=== PATIENT | male | born 1950 | race Caucasian/White ===

== ENCOUNTER 2016-08-30 14:00 | Inpatient (IN) | payer MEDICARE ==
--- NOTE | ~2016-08-30 | EKG ---
PATIENT: MARGO RICKETTS UNIT #: [id number] Ventricular Rate: 87 BPM Atrial Rate: 57 BPM QRS Duration: 96 ms Q-T Interval: 374 ms QTC Calculation(Bezet): 450 ms Calculated R [place]: 72 degrees Calculated T [place]: 30 degrees Diagnosis Line: Atrial fibrillation Diagnosis Line: Low voltage QRS Diagnosis Line: Abnormal ECG Diagnosis Line: When compared with ECG of 30-AUG-2016 13:22, Diagnosis Line: (unconfirmed) Diagnosis Line: No significant change was found Diagnosis Line: Confirmed by CHIQUITA ARAGON MD ([id number]) on Diagnosis Line: 09/01/2016 8:03:13 PM INTERPRETING MD: BRENDEN
--- NOTE | ~2016-08-30 | CO ---
Unit #: [id number] #: [id number] Patient: MARGO RICKETTS [id number] [address] [place], [place] [address] [id number] I MR#: [id number] NAME: MARGO RICKETTS. ROOM: 578 Age: 65 Sex: M Admission Date: 08/30/2016 : 1950 Attending Physician: Ephraim Mcduffie M.D. Primary Care Physician: Pradeep Fitzgerald M.D. Consultation Date: 08/31/2016 CONSULTATION REPORT REASON FOR CONSULTATION Atrial fibrillation with rapid ventricular response. HISTORY OF PRESENT ILLNESS This is a 65-year-old white male, who sees Dr. Bowen in the office for chronic diastolic and systolic congestive heart failure and paroxysmal atrial fibrillation, on anticoagulation with Coumadin; hypertension; obstructive sleep apnea; morbid obesity, who has an ejection fraction of 45% to 50% on last echo in 2013. He presented to the emergency room with a 2-day history of increased cough, fever, palpitations, chills, body aches, and weakness. He has been exposed to the flu to his grand children and other family members. He said he just with his weakness and fever and also feeling palpitations, he came to the emergency room for further evaluation. He denies any chest pain; pain in his neck, bilateral jaws, shoulders, arms, or elbow. He denies any dizziness. No vomiting, diarrhea, abdominal pain, but has some nausea. In the emergency room, the patient's blood pressure was 134/80, heart rate was 140, respirations 16, temperature 98.8, O2 saturations 97% on room air. Later, his temperature went to 101.0. His labs; BUN 15, creatinine 1.2, potassium 3.9, magnesium level 1.7, sodium was 131 on admission and this morning is 135. The patient's lactic acid level was 2.0 and this morning is 1.4. WBCs are 6.2. His BNP is 100. Troponins less than 0.03. EKG shows atrial fibrillation with rapid ventricular response, ventricular rate 119 beats per minute. Chest x-ray did not show anything acute. He was positive for influenza A. the patient was started on Tamiflu and also given a dose of 5 mg of IV Lopressor and bolus of normal saline. His heart rate is now in the 90s. He still remains in atrial fibrillation. According to the patient, he saw Dr. Bowen about a month ago and he believes he was in normal sinus rhythm. Cardiology consult to assist with evaluation management. PAST MEDICAL HISTORY 1. In 2010, he had a Lexiscan Cardiolite stress test. Nuclear portion showed inferior wall ischemia. Ejection fraction 48%. The patient refused catheterization. The patient does report that he had a heart catheterization years ago, and told that was normal. 2. In 2013, 2D echo, LVEF of 45% to 50%, severe left ventricular hypertrophy. Diastolic dysfunction. Normal valve. 3. History of paroxysmal atrial fibrillation, has been on anticoagulation with Coumadin. 4. History of systolic and diastolic congestive heart failure. 5. Hypertension. Unit #: [id number] #: [id number] Patient: MARGO RICKETTS 6. Hyperlipidemia. 7. Diabetes mellitus type 2. 8. Obstructive sleep apnea, uses CPAP and follows Dr. Acosta. 9. Morbid obesity, 321 pounds, BMI of 41. 10. Reformed smoker. PAST SURGICAL HISTORY 1. Removal of vocal cord polyp. 2. Back surgery. 3. Cataract extraction. 4. Cyst removed. HOME MEDICATIONS Klor-Con 20 mEq p.o. daily; Coumadin 10 mg on Friday, Friday, Friday, Friday, and Friday and 12.5 mg on Friday and ; levothyroxine 25 mcg p.o. daily; Pacerone 200 mg p.o. daily; digoxin 125 mcg p.o. daily; glyburide 2 mg p.o. b.i.d.; Januvia 100 mg p.o. daily; Glucophage 500 mg p.o. q.i.d.; Lipitor 40 mg p.o. daily, chewable aspirin 81 mg. ALLERGIES No known drug allergies. SOCIAL HISTORY The patient lives with his spouse. He is very sedentary due to his medical issues. He quit smoking about 10 years ago. No alcohol or illicit drug abuse. FAMILY HISTORY No known coronary artery disease. His sister has hypertension. REVIEW OF SYSTEMS See details in HPI. PHYSICAL EXAMINATION GENERAL: Mr. Randolph is a 65-year-old, morbidly obese male, in no acute respiratory distress. He is awake, alert, and oriented. VITAL SIGNS: Blood pressure is 134/70 and this morning is 101/64; heart rate 92; respirations 20; temperature is 100; O2 sats 94% on room air. NECK: Trachea midline. No thyromegaly or lymphadenopathy. Normal carotid upstrokes. No jugular venous distention. HEART: S1, S2. Irregular rate and rhythm. No clicks, murmurs, or rubs. LUNGS: Diminished. A few faint rhonchi, initially cough and socially upper airway to faint wheeze. ABDOMEN: Obese, nontender. Positive bowel sounds present. EXTREMITIES: Pedal pulses are palpable. No pedal edema. DIAGNOSTIC STUDIES LABORATORY RESULTS: Glucose is 155, BUN 15, creatinine 1.2, eGFR is above 60. Sodium 135, potassium 3.9, chloride 102, CO2 of 23, calcium is 9.0, magnesium is 1.8, total protein 7.2, albumin 3.9, bilirubin total 1.2. AST is 109, ALT is 55, alkaline phosphatase is 36. BNP is 100. Digoxin level is 0.4. WBCs 6.2, hemoglobin 14.8, hematocrit 44.1, platelets are 172. Initial cardiac enzymes; CK-MB is 1.1, troponin less than 0.05. CK-MB is 1.1 with troponin less than 0.05 and later troponin less than 0.03. Protime is 20.5 with an INR of 1.9. WBCs 6.2, hemoglobin 14.8 and hematocrit 44.1, platelets 172. Influenza A is positive. Urinalysis 500 glucose, 0.2 urobilinogen, and 0.2 rbc's and 0.2 wbc's. Blood cultures are pending. Lactic acid was 2.0, this morning 1.4. Unit #: [id number] #: [id number] Patient: MARGO RICKETTS IMAGING STUDIES: Chest x-ray shows pulmonary venous distention without definite edema, pneumonia, or pleural effusion. CARDIOVASCULAR STUDIES: EKG shows atrial fibrillation with ventricular rate 119 beats per minute, nonspecific ST-T wave abnormalities. Otherwise, unremarkable. IMPRESSION 1. Sepsis, influenza A. 2. Atrial fibrillation with rapid ventricular response. 3. History of paroxysmal atrial fibrillation. 4. Hyponatremia, which is improved. 5. History of systolic and diastolic congestive heart failure. 6. Hypertension. 7. Diabetes mellitus type 2. 8. Hyperlipidemia. 9. Obstructive sleep apnea, uses CPAP. 10. Morbid obesity. BMI is 41. PLAN 1. Cardiology consult to assist with evaluation and management of atrial fibrillation. According to the patient, he saw Dr. Bowen about a month ago, he thought he was in normal sinus rhythm. We will increase his amiodarone to 400 mg p.o. b.i.d. to try to help with heart rate without causing any hypotension. We will also give additional dose of digoxin today. His digoxin level is 0.4. 2. We will supplement his magnesium level. 3. We will give a low dose of IV Lasix for mild fluid overload. He has some pedal edema on exam, which is increased. 4. His cardiac enzymes are negative. He has no signs or symptoms of unstable angina. We will check INR today. Yesterday, it was 1.9. He is continuing on his Coumadin. 5. Continue to monitor his labs. His LFTs are slightly elevated. We will keep a close watch on that at this point. We will obtain a fasting lipid profile and hold his Lipitor. It could be from illness and elevated LFTs. 6. Further recommendations pending per Dr. Bowen. He will try to obtain office records to see if he actually was in sinus rhythm on his last admission. 7. TSH was done and is normal 2.08. We will check a fasting lipid profile. As mentioned, we will hold his Lipitor for now until watch and trend back down on this LFTs. Dictated by... Papito MarvinRShereenNShereen for Dagoberto Bowen M.D. MARILU/lissa TD: 08/31/2016 17:21 JOB #: [id number] Unit #: [id number] #: [id number] Patient: MARGO RICKETTS CONSULTATION REPORT X Sylvia Campos APRN CONSULTATION REPORT
--- NOTE | ~2016-08-30 | HP ---
Unit #: [id number] #: [id number] Patient: MARGO RICKETTS [id number] [address] [address] [id number] I MR#: [id number] NAME: MARGO RICKETTS. ROOM: 61515 Age: 65 Sex: M Admission Date: 08/30/2016 : 1950 Attending Physician: Merissa Mota M.D. Primary Care Physician: Pradeep Fitzgerald M.D. HISTORY AND PHYSICAL CHIEF COMPLAINT Fast heart rate, fever. HISTORY OF PRESENT ILLNESS The patient is a 65-year-old male with past medical history of atrial fibrillation, chronic anticoagulation, CHF, coronary artery disease, hypertension, hyperlipidemia, obstructive sleep apnea, diabetes, who presented to the emergency department for evaluation of the above. The patient states that he was in his usual state of health until the day prior to admission when he was playing bingo and started feeling bad. He states that he had shaking chills and nonproductive cough. This morning, he experienced palpitations. He denies any chest pain. He did have some associated shortness of breath. He denies any vomiting or diarrhea. No abdominal pain. He is not sure if his legs have swollen. He denies any change in his weight. In the emergency department, the patient's initial pulse was 140, oxygen saturation 97% on room air, blood pressure 134/80. EKG showed atrial fibrillation with rapid ventricular response at a rate of 119 beats per minute. Chest x-ray showed nothing acute. Rapid flu screen was positive for influenza A. He was given 5 mg of metoprolol as well as 650 mg of Tylenol, 75 mg of Tamiflu and a 500 mL normal saline bolus. He is being admitted to [facility] for evaluation and further treatment. PAST MEDICAL HISTORY 1. Admission to [facility] 03/16 through 03/17/2014 for paroxysmal atrial fibrillation. 2. Congestive heart failure. The patient had an echocardiogram 03/17/2014 that showed moderate concentric left ventricular hypertrophy with an ejection fraction of 45% to 50%. Doppler flow pattern was suggestive of impaired left ventricular relaxation. Borderline septal hypokinesis as well as borderline anterior wall hypokinesis were noted. The patient sees Dr. Bowen. 3. Atrial fibrillation on chronic anticoagulation with Coumadin. 4. Coronary artery disease. I do not see a cardiac catheterization note in [facility]. 5. Hypertension. 6. Hyperlipidemia. 7. Obstructive sleep apnea on CPAP. The patient has seen Dr. Acosta in the past. 8. Diabetes. Unit #: [id number] #: [id number] Patient: MARGO RICKETTS PAST SURGICAL HISTORY 1. Vocal cord polyp. 2. Back surgery. 3. Cataract extraction. 4. Cyst removal. ALLERGIES No known allergies. HOME MEDICATIONS Include: 1. Potassium. 2. Warfarin. 3. Levothyroxine. 4. Lisinopril. 5. Pacerone. 6. Digoxin. 7. Glimepiride. 8. Januvia. 9. Metformin. 10. Atorvastatin. 11. Baby aspirin. Home medications will need to be reviewed and verified. SOCIAL HISTORY The patient lives with his . He quit smoking more than 10 years ago. There is no alcohol use. He typically walks without assistance. FAMILY HISTORY Notable for his sister having hypertension. REVIEW OF SYSTEMS A complete review of systems is negative except as indicated in the HPI. The patient states that he did receive a flu shot this year. The patient states that his blood sugars are typically around 200. PHYSICAL EXAMINATION VITAL SIGNS: Temperature 98.8 but did reach 100.8, pulse 140, respirations 16, blood pressure 134/80, oxygen saturation 97% on room air. GENERAL: The patient is a male who is awake and alert, sitting up in bed. HEENT: Head is atraumatic. Mucous membranes are moist. NECK: Supple. Trachea is midline. LUNGS: Clear to auscultation bilaterally with no increased work of breathing. HEART: Irregular. ABDOMEN: Obese, soft, nontender. Bowel sounds present in all four quadrants. EXTREMITIES: Trace edema but are nontender. NEUROLOGIC: Patient is awake and alert. He follows commands. He does have esotropia involving the left eye that is not a new problem. PSYCHIATRIC: Mood and affect are normal. Patient is cooperative. SKIN OF EXAMINED AREAS: Warm and dry. DIAGNOSTIC STUDIES LABORATORY: Troponin is less than 0.05. Complete blood count notable for MCV of 96.7. Rapid flu screen is positive for influenza A. INR 1.9. Unit #: [id number] #: [id number] Patient: MARGO RICKETTS Lactic acid is 2. Comprehensive metabolic panel notable for a sodium of 131, chloride 97, glucose 183, AST 84, ALT 44. Urinalysis notable for 500 glucose. BNP 100. IMAGING: Chest x-ray shows nothing acute. CARDIOVASCULAR: EKG shows atrial fibrillation with rapid ventricular response at a rate of 119 beats per minute. ASSESSMENT The patient is a 65-year-old male with: 1. Sepsis with initial lactic acid of 2. 2. Influenza A. 3. Atrial fibrillation with rapid ventricular response. The patient received 5 mg of metoprolol in the emergency department. Heart rate is currently around 100. 4. Chronic anticoagulation with an INR 1.9. 5. Hyponatremia with a sodium of 131. The patient's sodium has been as low as 131 in the past on 03/18/2014. 6. Congestive heart failure with an ejection fraction of 45% to 50% as documented on echocardiogram 03/17/2014. 7. Coronary artery disease. 8. Hypertension. 9. Hyperlipidemia. 10. Obstructive sleep apnea on CPAP. The patient has seen Dr. Acosta in the past. 11. Diabetes. 12. Morbid obesity with a BMI of 41 present on admission. 13. Former smoker. PLAN 1. Admit to intermediate level. 2. 2-gram sodium 1800 mL fluid restricted heart-healthy consistent carb diet. 3. Sepsis protocol with repeat lactic acid. 4. Blood cultures x2. 5. Tamiflu 75 mg p.o. b.i.d. 6. TSH and magnesium levels. 7. Serial cardiac enzymes. 8. Consult Dr. Bowen regarding atrial fibrillation with a rapid ventricular response. 9. Strict I's and O's. 10. Daily weights. 11. Check digoxin level. 12. CPAP at home settings. 13. Hemoglobin A1c. 14. Low dose sliding scale insulin with Accu-Cheks. 15. P.r.n. Tylenol. 16. Repeat labs in the morning. 17. Supplemental oxygen. 18. P.r.n. DuoNeb. 19. Additional workup and consultants based on above. Unit #: [id number] #: [id number] Patient: MARGO RICKETTS Dictated by Merissa Mota M.D. LYRIC/zackery TD: 08/30/2016 19:00 JOB #: [id number] HISTORY AND PHYSICAL X Merissa Mota MD HISTORY AND PHYSICAL
--- NOTE | ~2016-08-30 | BMI ---
[facility] Nutrition Therapy DATE: 08/31/16 Patient: MARGO RICKETTS Physician: ANAHI Address: [address] Room/Bed: [address] [place] [address], Zip: [place] [address] Admit Date: 08/30/16 Date of : [birth year] Height: 6 1 Weight: 321 145.8 HIGH BMI NOTE: ANTHROPOMETRICS: HT: 6'1" WT: 145.8 BMI: 42.4 INTERVENTION: 1. HH/CC/ 2 GM NA+/ FR RECOMMENDATIONS: 1. CONTINUE CURRENT DIET. Respectfully, INDERJIT PASCUAL RD, LD [facility] and Nutrition[facility] Services [facility] cc: client file
--- NOTE | ~2016-08-30 | CR72 ---
[facility] A Service of [facility] & [facility] RADIOLOGY TEXT RESULTS PATIENT: MARGO RICKETTS LOCATION: [facility] [id number] : [birth year] UNIT #: [id number] AGE: [address]: Merissa Mota MD SEX: M ORDER DR: [id number] [facility] [address]. [place], [place] [address] [id number] I MR#: [id number] Acc #: [id number] NAME: MARGO RICKETTS. : 1950 SEX: M STUDY DATE/TIME: 08/30/2016 1344 UNIT: [facility]OF ROOM: 59920 STUDY DESCRIPTION: CR Chest Single View Portable Attending Physician: Merissa Mota M.D. Ordering Physician: Valerie Tom M.D. Primary Care Physician: Pradeep Fitzgerald M.D. MEDICAL IMAGING REPORT This report is preliminary unless electronic signature is present EXAM Chest portable 08/30/2016 1344 hours HISTORY 65-year-old man with 2-day history of chills, fever, shortness of air with cough and congestion. COMPARISON 06/27/2015 FINDINGS 2 portable upright views demonstrate heart size at the upper limits of normal. Mediastinal and hilar contours are normal. There is pulmonary venous distension without definite edema or pneumonia. IMPRESSION There is pulmonary venous distension without definite edema, pneumonia or pleural effusion. Benign calcified granulomatous changes are stable. Dictated by... Lotus Whiting M.D. THIS IS AN ELECTRONICALLY VERIFIED REPORT Lotus Whiting M.D. at 08/30/2016 6:17 PM Selam TD: 08/30/2016 17:26 JOB #: [id number] MEDICAL IMAGING REPORT COPY
--- NOTE | ~2016-08-30 | EKG ---
PATIENT: MARGO RICKETTS UNIT #: [id number] Ventricular Rate: 119 BPM Atrial Rate: 150 BPM QRS Duration: 86 ms Q-T Interval: 310 ms QTC Calculation(Bezet): 436 ms Calculated R [place]: 82 degrees Calculated T [place]: 17 degrees Diagnosis Line: Atrial fibrillation with rapid ventricular Diagnosis Line: response Diagnosis Line: Nonspecific ST abnormality Diagnosis Line: Abnormal ECG Diagnosis Line: When compared with ECG of 18-MAR-2014 16:58, Diagnosis Line: Atrial fibrillation has replaced Sinus rhythm Diagnosis Line: ST now depressed in Anterior leads Diagnosis Line: Confirmed by JOSE SMITH MD ([id number]) on 09/02/2016 Diagnosis Line: 7:22:29 AM INTERPRETING MD: SARAH GUTIERREZ
--- NOTE | ~2016-08-30 | DS ---
Unit #: [id number] #: [id number] Patient: MARGO RICKETTS [id number] [address] [address] [id number] I MR#: [id number] NAME: MARGO RICKETTS. ROOM: 578 Age: 65 Sex: M Admission Date: 08/30/2016 : 1950 Discharge Date: 09/02/2016 Attending Physician: Ephraim Mcduffie M.D. Primary Care Physician: Pradeep Fitzgerald M.D. DISCHARGE SUMMARY VEHICLE SERVICE AGENT Dr. Dagoberto Bowen. ADMITTING DIAGNOSES 1. Fever. 2. Influenza A. 3. Pneumonia. 4. Atrial fibrillation with rapid ventricular response. 5. History of chronic anticoagulation for atrial fibrillation. 6. Congestive heart failure. 7. Coronary artery disease. 8. Hypertension. 9. Hyperlipidemia. 10. Obstructive sleep apnea. 11. Morbid obesity. 12. Diabetes mellitus type 2, poorly controlled. HISTORY OF PRESENT ILLNESS The patient is a 65-year-old man with multiple medical problems including chronic atrial fibrillation on anticoagulation, congestive heart failure, coronary artery disease, hypertension, hyperlipidemia, sleep apnea, obesity, diabetes who presented to the emergency room with a chief complaint of fever and tachycardia. HOSPITAL COURSE In the initial evaluation, he was noted to be positive for influenza A. He was also noted to be tachycardic, thought to be secondary to sepsis due to influenza A and pneumonia. He was started on Tamiflu. He was started on IV fluids. He was initially IV metoprolol. Cardiology was consulted. He was given an additional dose of digoxin. His amiodarone was increased to 400 mg and later cut down back to 200 mg. His heart rate stabilized. He is feeling better. He is afebrile. He is doing a lot better and he wants to go home. Request for him to follow up with cardiology as an outpatient. PHYSICAL EXAMINATION On the day of the discharge, his physical examination: VITAL SIGNS: Temperature 98.6, pulse rate 78 irregular, respiratory rate 18, blood pressure 102/63. GENERAL: The patient is obese, alert, oriented x3 lying in the bed. No acute distress. HEENT: Normocephalic and atraumatic. No icterus. PERRLA. Extraocular muscles intact. HEART: S1, S2 irregular. Unit #: [id number] #: [id number] Patient: MARGO RICKETTS CHEST: Bilateral equal air entry. Minimal rhonchi. ABDOMEN: Soft, nontender. EXTREMITIES: No edema. Normal pulses. DISCHARGE MEDICATIONS 1. Amiodarone 200 mg p.o. daily. 2. Coumadin 10 mg on Friday, Friday, Friday, Friday, Friday and 12.5 mg on Friday and . He is instructed to follow with his primary care to check his INR to target it between 2-3. 3. Metformin 500 mg p.o. four times a day. 4. Januvia 100 mg daily. 5. Tamiflu 75 mg p.o. q.12 hours for two more days. 6. Toprol XL 25 mg p.o. daily. 7. Lipitor 40 mg at bedtime. 8. Lisinopril 20 mg twice a day. 9. Aspirin 81 mg daily. 10. KCl 20 mEq p.o. daily. 11. Amaryl 2 mg p.o. twice a day. 12. Synthroid 25 mcg p.o. daily. FOLLOWUP He is instructed to follow with Dr. Bowen and with primary care in one to two weeks. Total time spent in his care, 28 minutes. Dictated by... Ephraim Mcduffie M.D. Carlos TD: 09/02/2016 17:14 JOB #: [id number] DISCHARGE SUMMARY X X DISCHARGE SUMMARY
[2016-08-30 13:57] LABS: POC - CKMB <1.0 ng/mL (0.0-7.9); POC - TROPONIN <0.05 ng/mL (<=0.05)
[~2016-08-30 14:00] MED LIST: ACETAMINOPHEN PO; ACETAMINOPHEN500 M3 PO; ALBUTEROL17 G1 INH; AMARYL PO; ASPIRIN81 M1 PO; BENZONATATE PO; CIPRO PO; COUMADIN PO; COUMADIN10 MG PO; COUMADIN2.5 MG PO; GLIMEPIRIDE2 MG PO; HCTZ PO; KCL PO; LASIX20 MG PO; LEVAQUIN PO; LIPITOR PO; LIPITOR20 MG PO; LISINOPRIL PO; LISINOPRIL-HCTZ1 T15 PO; LISINOPRIL20 MG PO; METFORMIN HCL1000 M1 PO; METFORMIN HCL500 M2 PO; PACERONE PO; PRILOSEC20 M1 PO; PROTONIX PO; ROBITUSSIN A-C-S1 ML PO
[2016-08-30 14:03] LABS: BASOPHIL# 0.1 X10e3 (0-0.3); BASOPHIL% 0.9 % (0-2.5); EOSINOPHIL# 0.1 X10e3 (0-0.7); EOSINOPHIL% 1.1 % (0.0-7.0); HEMATOCRIT 43.3 % (38.0-50.0); HEMOGLOBIN 14.5 gm/dL (13.0-16.0); LYMPHOCYTE# 0.8 X10e3 (1.0-3.5); LYMPHOCYTE% 10.7 % (17.0-45.0); MEAN CELL VOLUME 96.7 FL (83-96); MEAN CORPUSCULAR HEMOGLOBIN 32.4 PG (28-34); MEAN CORPUSCULAR HGB CONC 33.5 g/dL (30-36); MEAN PLATELET VOLUME 8.6 FL (6.5-11.5); MONOCYTE# 0.9 X10e3 (0-1.0); MONOCYTE% 11.4 % (3.0-12.0); NEUTROPHIL# 5.8 X10e3 (1.5-7.1); NEUTROPHIL% 75.9 % (40-75); PLATELET COUNT 194 X10e3 (140-420); RED BLOOD COUNT 4.48 X10e (3.90-5.60); RED CELL DISTRIBUTION WIDTH 13.6 % (11.0-15.5); WHITE BLOOD COUNT 7.7 X10e3 (4.0-10.5)
[2016-08-30 14:12] LABS: DIFF IND NO
[2016-08-30 14:20] LABS: URINE SOURCE CLEAN CATCH
[2016-08-30 14:22] LABS: INFLUENZA A POS (NEG); INFLUENZA B NEG (NEG)
[2016-08-30 14:24] LABS: ALKALINE PHOSPHATASE 40 U/L (32-92); ALT (SGPT) 44 U/L (10-40); AST (SGOT) 84 U/L (10-42); BILIRUBIN, DIRECT 0.2 mg/dL (0.0-0.2); BILIRUBIN,INDIRECT 1.2 mg/dL (0.0-0.9); BILIRUBIN,TOTAL 1.4 mg/dL (0.2-2.0); BLOOD UREA NITROGEN 12 mg/dL (9-23); CALCIUM SERUM 9.3 mg/dL (8.4-10.2); CARBON DIOXIDE 24 mmol/L (22-31); CHLORIDE 97 mmol/L (100-111); CREATININE SERUM 1.2 mg/dL (0.6-1.4); GLOM FILT RATE Estimated ABOVE60 mL/min (>60); GLUCOSE FASTING 183 mg/dL (70-110); PROTEIN TOTAL SERUM 7.1 g/dL (6.0-8.3); SODIUM 131 mmol/L (135-145)
[2016-08-30 14:25] LABS: INR 1.9; PARTIAL THROMBOPLASTIN TIME 33.5 SECONDS (23.5-31.3); PROTHROMBIN TIME (PATIENT) 20.5 SECONDS (9.6-11.5)
[2016-08-30 14:29] LABS: URINE APPEARANCE CLEAR; URINE BILIRUBIN NEG (NEG); URINE BLOOD TRACE (NEG); URINE COLOR YELLOW; URINE GLUCOSE 500 MG/DL (NEG); URINE KETONE TRACE (NEG); URINE LEUKOCYTE ESTERASE NEG (NEG); URINE NITRATE NEG (NEG); URINE PROTEIN NEG (NEG); URINE SPECIFIC GRAVITY 1.027 (1.003-1.035); URINE UROBILINOGEN 0.2 MG/DL (NEG)
[2016-08-30 14:33] LABS: U HYALINE CASTS AUWI 0-2 /[LPF]; URBCS1 AUWI 0-2 /[HPF] (0-2); URINE BACTERIA AUWI NEG (NEGATIVE); URINE SQUAMOUS EPITHELIAL CELL NONE SEEN /[HPF]; UWBCS1 AUWI 0-2 (0-5)
[2016-08-30 14:35] LABS: CULTURE INDICATED? NO
[2016-08-30 15:11] LABS: POC - CKMB 1.1 ng/mL (0.0-7.9); POC - TROPONIN <0.05 ng/mL (<=0.05)
[2016-08-30] MEDS ORDERED: KCL PO (17:11)
[2016-08-30] MEDS ORDERED: COUMADIN5 MG PO ×2 (17:12→17:13)
[2016-08-30] MEDS ORDERED: LEVOTHYROXINE25 MC1 PO (17:13)
[2016-08-30] MEDS ORDERED: PACERONE PO (17:13)
[2016-08-30] MEDS ORDERED: DIGITEK125 MCG PO (17:13)
[2016-08-30] MEDS ORDERED: GLUCOPHAGE500 M1 PO (17:14)
[2016-08-30] MEDS ORDERED: JANUVIA100 MG PO (17:14)
[2016-08-30] MEDS ORDERED: GLIMEPIRIDE2 MG PO (17:14)
[2016-08-30] MEDS ORDERED: LIPITOR40 MG PO (17:15)
[2016-08-30] MEDS ORDERED: CHEWABLE ASPIRI81 MG PO (17:15)
[2016-08-30 22:54] LABS: MB 1.1 ng/ml
[2016-08-31 06:12] LABS: BASOPHIL# 0.1 X10e3 (0-0.3); BASOPHIL% 0.8 % (0-2.5); DIFF IND NO; EOSINOPHIL% 0.3 % (0.0-7.0); HEMATOCRIT 44.1 % (38.0-50.0); HEMOGLOBIN 14.8 gm/dL (13.0-16.0); LYMPHOCYTE% 15.3 % (17.0-45.0); MEAN CELL VOLUME 97.2 FL (83-96); MEAN CORPUSCULAR HEMOGLOBIN 32.6 PG (28-34); MEAN CORPUSCULAR HGB CONC 33.5 g/dL (30-36); MEAN PLATELET VOLUME 8.6 FL (6.5-11.5); MONOCYTE% 16.2 % (3.0-12.0); NEUTROPHIL# 4.2 X10e3 (1.5-7.1); NEUTROPHIL% 67.4 % (40-75); PLATELET COUNT 172 X10e3 (140-420); RED BLOOD COUNT 4.53 X10e (3.90-5.60); RED CELL DISTRIBUTION WIDTH 13.9 % (11.0-15.5); WHITE BLOOD COUNT 6.2 X10e3 (4.0-10.5)
[2016-08-31 06:44] LABS: ALBUMIN SERUM 3.9 g/dL (3.5-5.0); ALKALINE PHOSPHATASE 36 U/L (32-92); ALT (SGPT) 55 U/L (10-40); AST (SGOT) 109 U/L (10-42); BILIRUBIN,TOTAL 1.2 mg/dL (0.2-2.0); BLOOD UREA NITROGEN 15 mg/dL (9-23); CARBON DIOXIDE 23 mmol/L (22-31); CHLORIDE 102 mmol/L (100-111); CREATININE SERUM 1.2 mg/dL (0.6-1.4); GLOM FILT RATE Estimated ABOVE60 mL/min (>60); GLUCOSE FASTING 155 mg/dL (70-110); MAGNESIUM 1.7 mg/dL (1.6-3.0); POTASSIUM 3.9 mmol/L (3.5-5.1); PROTEIN TOTAL SERUM 7.2 g/dL (6.0-8.3); SODIUM 135 mmol/L (135-145)
[2016-08-31 07:47] LABS: %MB 0.8 % (0.0-4.0); MB 1.1 ng/ml
[2016-08-31 11:14] LABS: INR 1.3; PROTHROMBIN TIME (PATIENT) 14.1 SECONDS (9.6-11.5)
[2016-08-31] MEDS ORDERED: LISINOPRIL20 MG PO (17:48)
[2016-09-01 05:27] LABS: HEMATOCRIT 44.8 % (38.0-50.0); HEMOGLOBIN 14.7 gm/dL (13.0-16.0); MEAN CELL VOLUME 97.7 FL (83-96); MEAN CORPUSCULAR HEMOGLOBIN 32.1 PG (28-34); MEAN CORPUSCULAR HGB CONC 32.9 g/dL (30-36); MEAN PLATELET VOLUME 8.4 FL (6.5-11.5); RED BLOOD COUNT 4.59 X10e (3.90-5.60); RED CELL DISTRIBUTION WIDTH 13.9 % (11.0-15.5)
[2016-09-01 06:55] LABS: ALBUMIN SERUM 3.6 g/dL (3.5-5.0); BUN/CREATININE RATIO 16.15; CALCIUM SERUM 8.5 mg/dL (8.4-10.2); CREATININE SERUM 1.3 mg/dL (0.6-1.4); GLOM FILT RATE Estimated 58.9 mL/min (>60); POTASSIUM 4.1 mmol/L (3.5-5.1); PROTEIN TOTAL SERUM 6.4 g/dL (6.0-8.3)
[2016-09-01 08:50] LABS: INR 1.3; PROTHROMBIN TIME (PATIENT) 13.5 SECONDS (9.6-11.5)
[2016-09-02 05:28] LABS: BASOPHIL% 0.6 % (0-2.5); EOSINOPHIL# 0.2 X10e3 (0-0.7); EOSINOPHIL% 3.9 % (0.0-7.0); HEMATOCRIT 41.6 % (38.0-50.0); HEMOGLOBIN 13.8 gm/dL (13.0-16.0); LYMPHOCYTE# 1.3 X10e3 (1.0-3.5); LYMPHOCYTE% 25.1 % (17.0-45.0); MEAN CELL VOLUME 97.1 FL (83-96); MEAN CORPUSCULAR HEMOGLOBIN 32.2 PG (28-34); MEAN CORPUSCULAR HGB CONC 33.2 g/dL (30-36); MEAN PLATELET VOLUME 8.9 FL (6.5-11.5); MONOCYTE# 0.7 X10e3 (0-1.0); MONOCYTE% 13.9 % (3.0-12.0); NEUTROPHIL% 56.5 % (40-75); PLATELET COUNT 158 X10e3 (140-420); RED BLOOD COUNT 4.28 X10e (3.90-5.60); RED CELL DISTRIBUTION WIDTH 13.7 % (11.0-15.5); WHITE BLOOD COUNT 5.2 X10e3 (4.0-10.5)
[2016-09-02 05:33] LABS: DIFF IND NO
[2016-09-02 06:02] LABS: BLOOD UREA NITROGEN 17 mg/dL (9-23); BUN/CREATININE RATIO 14.16; CALCIUM SERUM 8.3 mg/dL (8.4-10.2); CARBON DIOXIDE 23 mmol/L (22-31); CHLORIDE 101 mmol/L (100-111); CREATININE SERUM 1.2 mg/dL (0.6-1.4); GLOM FILT RATE Estimated ABOVE60 mL/min (>60); GLUCOSE FASTING 168 mg/dL (70-110); SODIUM 133 mmol/L (135-145)
[2016-09-02 14:03] LABS: INR 1.3; PROTHROMBIN TIME (PATIENT) 13.6 SECONDS (9.6-11.5)
[2016-09-02] MEDS ORDERED: TAMIFLU75 M1 PO (16:08)
[2016-09-02] MEDS ORDERED: METOPROLOL SUCC25 MG PO (16:09)
== END 2016-09-02 17:31 | disposition home or self-care (01) | DRG 871 ==
LOC: CED 14:00 → CEDOF 16:20 → C5C 08-31 03:46
PROVIDERS: Emergency Medicine; Family Medicine; Internal Medicine; Nurse Practitioner
DX: A41.9 Sepsis, unspecified organism (principal); J09.X1 Influenza due to identified novel influenza A virus with pneumonia; I50.42 Chronic combined systolic (congestive) and diastolic (congestive) heart failure; E11.65 Type 2 diabetes mellitus with hyperglycemia; Z68.41 Body mass index [BMI] 40.0-44.9, adult; E87.1 Hypo-osmolality and hyponatremia; Z79.01 Long term (current) use of anticoagulants; I25.10 Atherosclerotic heart disease of native coronary artery without angina pectoris; I10 Essential (primary) hypertension; E78.5 Hyperlipidemia, unspecified; G47.33 Obstructive sleep apnea (adult) (pediatric); E66.01 Morbid (severe) obesity due to excess calories; I48.2 Chronic atrial fibrillation; Z79.82 Long term (current) use of aspirin; I48.0 Paroxysmal atrial fibrillation; Z87.891 Personal history of nicotine dependence; Z82.49 Family history of ischemic heart disease and other diseases of the circulatory system; Z98.49 Cataract extraction status, unspecified eye
CPT/HCPCS: 36415; 71010; 80048; 80053; 80061; 80076; 80162; 81003; 82550; 82553; 82947; 83036; 83605; 83735; 83880; 84443; 84484; 85025; 85027; 85610; 85730; 87040; 87804; 93005; 94640; 94760; 96361; 96374; 99285; J1650; J1815; J1940; J3475; J3490

== ENCOUNTER 2017-03-01 14:36 | Emergency (ER) | payer MEDICARE ==
[~2017-03-01] VITALS: Ht 188 cm; Wt 149.7 kg
[~2017-03-01 14:36] MED LIST changes: +CHEWABLE ASPIRI81 MG PO; +COUMADIN5 MG PO; +DIGITEK125 MCG PO; +GLUCOPHAGE500 M1 PO; +JANUVIA100 MG PO; +LEVOTHYROXINE25 MC1 PO; +LIPITOR40 MG PO; +METOPROLOL SUCC25 MG PO; +TAMIFLU75 M1 PO
[2017-03-01 16:11] LABS: BASOPHIL# 0.1 X10e3 (0-0.3); BASOPHIL% 0.5 % (0-2.5); EOSINOPHIL# 0.2 X10e3 (0-0.7); EOSINOPHIL% 1.5 % (0.0-7.0); HEMOGLOBIN 14.9 gm/dL (13.0-16.0); LYMPHOCYTE# 1.2 X10e3 (1.0-3.5); LYMPHOCYTE% 9.2 % (17.0-45.0); MEAN CELL VOLUME 97.9 FL (83-96); MEAN CORPUSCULAR HEMOGLOBIN 32.5 PG (28-34); MEAN CORPUSCULAR HGB CONC 33.2 g/dL (30-36); MEAN PLATELET VOLUME 9.2 FL (6.5-11.5); MONOCYTE# 0.9 X10e3 (0-1.0); MONOCYTE% 7.2 % (3.0-12.0); NEUTROPHIL# 10.7 X10e3 (1.5-7.1); NEUTROPHIL% 81.6 % (40-75); PLATELET COUNT 229 X10e3 (140-420); RED BLOOD COUNT 4.59 X10e (3.90-5.60); RED CELL DISTRIBUTION WIDTH 13.7 % (11.0-15.5); WHITE BLOOD COUNT 13.1 X10e3 (4.0-10.5)
[2017-03-01 16:13] LABS: DIFF IND NO
[2017-03-01 16:26] LABS: INR 1.4; PARTIAL THROMBOPLASTIN TIME 28.9 SECONDS (23.5-31.3); PROTHROMBIN TIME (PATIENT) 15.4 SECONDS (10.0-11.7)
[2017-03-01 16:36] LABS: BUN/CREATININE RATIO 12.85; CALCIUM SERUM 9.3 mg/dL (8.4-10.2); CREATININE SERUM 1.4 mg/dL (0.6-1.4); POTASSIUM 4.2 mmol/L (3.5-5.1)
== END 2017-03-01 18:14 | disposition home or self-care (01) ==
LOC: CFTX 14:36 → CED 14:36 → CFTX 15:08
PROVIDERS: Physician Assistant
DX: L03.114 Cellulitis of left upper limb (principal); I10 Essential (primary) hypertension; E11.9 Type 2 diabetes mellitus without complications; I48.91 Unspecified atrial fibrillation; Z87.891 Personal history of nicotine dependence
CPT/HCPCS: 36415; 80048; 85025; 85610; 85730; 87040; 96365; 99283; J3370